=== PATIENT | female | born 1980 | race African-American/Black ===

== ENCOUNTER 2017-02-04 09:24 | Emergency (ER) | payer MEDICAID ==
[~2017-02-04] VITALS: Ht 172.7 cm; Wt 77.0 kg
[2017-02-04 10:37] LABS: CLARITY URINE CLEAR (CLEAR); COLOR URINE YELLOW (YELLOW); GLUCOSE URINE NEGATIVE (NEGATIVE); KETONES URINE NEGATIVE (NEGATIVE); LEUKOCYTE ESTERASE URINE NEGATIVE (NEGATIVE); NITRITE URINE NEGATIVE (NEGATIVE); OCCULT BLOOD URINE NEGATIVE (NEGATIVE); PH URINE 6.5 (4.5-8.0); PROTEIN URINE NEGATIVE (NEGATIVE); SPECIFIC GRAVITY URINE 1.013 (1.005-1.030)
[2017-02-04 11:54] VITALS: BP 118/68
[2017-02-06 04:37] LABS: CHLAMYDIA TRACHOMATIS NAA Negative (Negative); NEISSERIA GONORRHOEAE NAA Negative (Negative)
== END 2017-02-04 13:26 | disposition home or self-care (01) ==
LOC: ER 09:26
DX: R39.15 Urgency of urination (principal); N89.8 Other specified noninflammatory disorders of vagina
CPT/HCPCS: 81003; 81025; 87086; 87210; 87491; 87591; 99284; Z7610

== ENCOUNTER 2017-04-29 08:50 | Emergency (ER) | payer MEDICAID ==
[~2017-04-29] VITALS: Ht 172.7 cm; Wt 83.0 kg
[2017-04-29 09:26] VITALS: BP 133/80
== END 2017-04-29 16:46 | disposition left against medical advice (07) ==
LOC: ER 16:08
DX: H57.8 Other specified disorders of eye and adnexa (principal); Z53.21 Procedure and treatment not carried out due to patient leaving prior to being seen by health care provider

== ENCOUNTER 2017-04-30 09:09 | Emergency (ER) | payer MEDICAID ==
[~2017-04-30] VITALS: Ht 172.7 cm; Wt 81.0 kg
[2017-04-30 09:11] VITALS: BP 115/89
== END 2017-04-30 10:09 | disposition home or self-care (01) ==
LOC: ER 09:10
DX: H10.10 Acute atopic conjunctivitis, unspecified eye (principal)
CPT/HCPCS: 99282